=== PATIENT | male | born 1960 | race Hispanic/Latino ===

== ENCOUNTER 2017-09-02 17:00 | Emergency (ER) | payer MEDICARE ==
[2017-09-02 17:18] VITALS: BP 151/90
[2017-09-02 17:47] LABS: Basophils % (Auto) 0.6 % (0.0-1.8); Eosinophils % (Auto) 1.7 % (0.0-4.3); Hematocrit 41.7 % (35.5-45.6); Hemoglobin 13.9 gm/dl (11.8-15.2); Mean Corpuscular HGB Conc 34 % (32-34); Mean Corpuscular Hemoglobin 32 pg (28-32); Mean Corpuscular Volume 96 fl (84-94); Platelet Count 275 K/mm3 (140-440); Red Blood Count 4.36 M/mm3 (3.65-5.03); Red Cell Distribution Width 15.7 % (13.2-15.2); White Blood Count 9.8 K/mm3 (4.5-11.0)
[2017-09-02 18:07] LABS: Anion Gap 19 mmol/L; BUN/Creatinine Ratio 20; Blood Urea Nitrogen 12 mg/dL (9-20); Calcium 9.2 mg/dL (8.4-10.2); Carbon Dioxide 21 mmol/L (22-30); Chloride 100.4 mmol/L (98-107); Glucose 90 mg/dL (75-100); Potassium 4.1 mmol/L (3.6-5.0); Sodium 136 mmol/L (137-145)
--- NOTE | 2017-09-02 21:15 | Emergency Department Report ---
- General Chief Complaint: Wound/Laceration Stated Complaint: L LEG PAIN/ABCESS/MRSA Time Seen by Provider: 09/02/17 21:14 Source: patient Mode of arrival: Wheelchair Limitations: No Limitations - History of Present Illness Initial Comments: 57 yo male with below the knee amputation who fell last week and sustained an injury to his left stump./ he was seen a [facility] IN [facility]) WOUND CX AND SENSITIVITY WERE DONE. THEY STARTED HIM ON BACTRIM AND HE IS HER STATING THAT THE BACTRIM IS NOT WORKING. PT HAD THE STUMP COVERED UP IN A SLEEVE AND WEARING THE PROSTHESIS. THE WOUND WAS NOT COVERED IN A DRESSING.HE IS HERE WITH THE CS AND SENSITIVITY RESULTS AND I WILL CHOOSE AN ANTIBIOTIC FROM THIS LIST. -: week(s) (1) - Related Data Home Medications Medication Instructions Recorded Confirmed Last Taken Gabapentin [Neurontin] 300 mg PO TID 02/16/15 02/16/15 02/16/15 Ibuprofen [Motrin] 800 mg PO DAILY 02/16/15 02/16/15 02/16/15 Omeprazole [PriLOSEC] 40 mg PO DAILY 02/16/15 02/16/15 02/16/15 Previous Rx's Medication Instructions Recorded Last Taken Type Doxycycline [Vibramycin CAP] 100 mg PO Q12H #20 capsule 02/16/15 Unknown Rx Ibuprofen [Motrin 600 MG tab] 600 mg PO Q8H PRN #20 tablet 02/16/15 Unknown Rx HYDROcodone/APAP 5-325 [[place] 1 each PO Q6HR PRN #12 tablet 09/02/17 Unknown Rx 5-325 mg TAB] Levofloxacin [Levaquin] 750 mg PO QDAY #14 tablet 09/02/17 Unknown Rx Sulfamethoxazole/Trimethoprim 1 each PO Q12H #20 tablet 09/02/17 Unknown Rx [Bactrim DS TAB] Allergies Allergy/AdvReac Type Severity Reaction Status Date / Time No Known Allergies Allergy Verified 02/16/15 13:29 ED Review of Systems ROS: Stated complaint: L LEG PAIN/ABCESS/MRSA Other details as noted in HPI Constitutional: denies: chills, fever Eyes: denies: eye pain, eye discharge, vision change ENT: denies: ear pain, throat pain Respiratory: denies: cough, shortness of breath, wheezing Cardiovascular: denies: chest pain, palpitations Endocrine: no symptoms reported Gastrointestinal: denies: abdominal pain, nausea, diarrhea Genitourinary: denies: urgency, dysuria Musculoskeletal: denies: back pain, joint swelling, arthralgia Skin: denies: rash, lesions Neurological: denies: headache, weakness, paresthesias Psychiatric: denies: anxiety, depression Hematological/Lymphatic: denies: easy bleeding, easy bruising ED Past Medical Hx - Past Medical History Hx of Cancer: Yes (melanoma) Hx Psychiatric Treatment: Yes (depression) Hx COPD: Yes Additional medical history: L BKA. OTEOMYEOLITIS. MRSA - Surgical History Additional Surgical History: L BKA. ABD SURGERIES. SKIN GRAFTS BOTH LEGS - Social History Smoking Status: Current Every Day Smoker Substance Use Type: None - Medications Home Medications: Home Medications Medication Instructions Recorded Confirmed Last Taken Type Doxycycline [Vibramycin CAP] 100 mg PO Q12H #20 capsule 02/16/15 Unknown Rx Gabapentin [Neurontin] 300 mg PO TID 02/16/15 02/16/15 02/16/15 History Ibuprofen [Motrin 600 MG tab] 600 mg PO Q8H PRN #20 tablet 02/16/15 Unknown Rx Ibuprofen [Motrin] 800 mg PO DAILY 02/16/15 02/16/15 02/16/15 History Omeprazole [PriLOSEC] 40 mg PO DAILY 02/16/15 02/16/15 02/16/15 History HYDROcodone/APAP 5-325 [[place] 1 each PO Q6HR PRN #12 tablet 09/02/17 Unknown Rx 5-325 mg TAB] Levofloxacin [Levaquin] 750 mg PO QDAY #14 tablet 09/02/17 Unknown Rx Sulfamethoxazole/Trimethoprim 1 each PO Q12H #20 tablet 09/02/17 Unknown Rx [Bactrim DS TAB] ED Physical Exam - General Limitations: No Limitations General appearance: alert, in no apparent distress - Head Head exam: Present: atraumatic, normocephalic - Eye Eye exam: Present: normal appearance - ENT ENT exam: Present: mucous membranes moist - Neck Neck exam: Present: normal inspection - Respiratory Respiratory exam: Present: normal lung sounds bilaterally. Absent: respiratory distress - Cardiovascular Cardiovascular Exam: Present: regular rate, normal rhythm. Absent: systolic murmur, diastolic murmur, rubs, gallop - GI/Abdominal GI/Abdominal exam: Present: soft, normal bowel sounds - Rectal Rectal exam: Present: deferred - Extremities Exam Extremities exam: Present: normal inspection, tenderness (OVER LEFT BKA STUMP, ERYTHEMA, NO PUS) - Back Exam Back exam: Present: normal inspection, full ROM - Neurological Exam Neurological exam: Present: alert, oriented X3 - Psychiatric Psychiatric exam: Present: normal affect, normal mood - Skin Skin exam: Present: warm, dry, intact, normal color. Absent: rash ED Course Vital Signs 09/02/17 17:10 Temperature 98.2 F Pulse Rate 116 H Respiratory 20 Rate Blood Pressure 151/90 O2 Sat by Pulse 99 Oximetry ED Medical Decision Making - Lab Data Result diagrams: 09/02/17 17:30 09/02/17 17:30 - Medical Decision Making AMA-PT WANTED IV ANTIBIOTICS SO HE LEFT BECAUSE WE WERE GIVING HIM PO. Critical care attestation.: If time is entered above; I have spent that time in minutes in the direct care of this critically ill patient, excluding procedure time. ED Disposition Clinical Impression: MRSA cellulitis Disposition: - TO HOME OR SELFCARE Is pt being admited?: No Does the pt Need Aspirin: No Condition: Stable Prescriptions: HYDROcodone/APAP 5-325 [[place] 5-325 mg TAB] 1 each PO Q6HR PRN #12 tablet PRN Reason: Pain Levofloxacin [Levaquin] 750 mg PO QDAY #14 tablet Sulfamethoxazole/Trimethoprim [Bactrim DS TAB] 1 each PO Q12H #20 tablet Referrals: PRIMARY CARE, [Primary Care Provider] - 3-5 Days Time of Disposition: 21:31
[2017-09-02] MEDS ORDERED: TORADOL IV ONE (21:17)
[2017-09-02] MEDS ORDERED: LEVAQUIN 750MG/150ML 750 MG/150 ML BAG IV ONE (21:17)
[2017-09-02] MEDS ORDERED: LEVAQUIN PO ONE (21:25)
[2017-09-02] MEDS ORDERED: TORADOL IM ONE (21:26)
--- NOTE | 2017-09-03 07:36 | XRay Report ---
Left knee 2 views: History: Below knee amputation, infection left stump. Findings: Below knee amputation is noted. Distal margins appear smooth. No periosteal reaction or lytic lesion. Impression: No definite radiographic findings suggestive of osteomyelitis.
== END 2017-09-02 21:31 | disposition home or self-care (01) ==
LOC: ED 17:00
DX: A49.02 Methicillin resistant Staphylococcus aureus infection, unspecified site (principal); L03.116 Cellulitis of left lower limb
CPT/HCPCS: 36415; 73562; 80048; 85025; 99283; J1885